=== PATIENT | male | born 1930 | race Caucasian/White ===

== ENCOUNTER 2018-01-31 21:11 | Inpatient (IN) | payer MEDICARE, OTHER, MEDICAID ==
[2018-01-31] MEDS: SODIUM CHLORIDE 0.9% 1L BAG IV* (22:12)
[2018-01-31] MEDS: morphine 4 MG/ML VIAL IV (22:12)
[2018-01-31 22:28] LABS: ADD MAN DIFF? NO
[2018-01-31 22:32] LABS: WHITE BLOOD COUNT 13.7 10^3/ul (4.8-10.8)
[2018-01-31 22:32] LABS: BASOPHILS % 0.2 % (0.0-2.0); HEMATOCRIT 47.7 % (42.0-52.0); HEMOGLOBIN 15.3 g/dl (14.0-18.0); LYMPHOCYTES # 2.4 10^3/ul (0.8-2.9); LYMPHOCYTES % 17.7 % (15.0-51.0); MEAN CORPUSCULAR HEMOGLOBIN 28.7 pg (29.0-33.0); MEAN CORPUSCULAR HGB CONC 32.1 g/dl (32.0-37.0); MEAN CORPUSCULAR VOLUME 89.5 fl (82.0-101.0); MEAN PLATELET VOLUME 10.6 fl (7.4-10.4); MONOCYTE # 1.3 10^3/ul (0.3-0.9); MONOCYTES % 9.4 % (0.0-11.0); NEUTROPHIL # 9.9 10^3/ul (1.6-7.5); NEUTROPHILS % 72.2 % (39.0-77.0); PLATELET COUNT 190 10^3/UL (140-415); POSITIVE DIFF @See below; RED BLOOD COUNT 5.33 10^6/ul (4.70-6.10); RED CELL DISTRIBUTION WIDTH 15.8 % (11.5-14.5)
[2018-01-31] MEDS: ONDANSETRON 4 MG INJ IV (22:44)
[2018-01-31 22:50] LABS: ALANINE AMINOTRANSFERASE 29 IU/L (13-69); ALBUMIN 3.9 g/dl (3.3-4.9); ALBUMIN/GLOBULIN RATIO 1.08; ALKALINE PHOSPHATASE 66 IU/L (42-121); ANION GAP 23 (8-16); ASPARTATE AMINO TRANSFERASE 43 IU/L (15-46); BILIRUBIN,INDIRECT 0.2 mg/dl (0-1.1); BILIRUBIN,TOTAL 0.2 mg/dl (0.2-1.3); BLOOD UREA NITROGEN 73 mg/dl (7-20); CALCIUM 9.4 mg/dl (8.4-10.2); CARBON DIOXIDE 16 mmol/L (21-31); CHLORIDE 114 mmol/L (97-110); CREATININE 4.07 mg/dl (0.61-1.24); GLUCOSE 157 mg/dl (70-220); INR 1.12; PROTIME 14.6 Sec (11.9-14.9); PT RATIO 1.1; SODIUM 146 mmol/L (135-144); TOTAL PROTEIN 7.5 g/dl (6.1-8.1)
[2018-01-31 22:51] LABS: PARTIAL THROMBOPLASTIN TIME 28.1 Sec (25.0-35.0)
[2018-01-31 22:55] LABS: LACTIC ACID 3.8 mmol/L (0.5-2.0)
[2018-01-31 23:16] LABS: BAND NEUTROPHILS #M 3.2 10^3/ul (0.0-0.6); BAND NEUTROPHILS % (M) 24 % (0-4); BURR CELLS 2+ (0-0); GIANT THROMBO% (M) 2 % (0-0); LYMPHOCYTES #M 2.7 10^3/ul (0.8-2.9); LYMPHOCYTES % (M) 20 % (15-51); MONOCYTE #M 0.9 10^3/ul (0.3-0.9); MONOCYTES % (M) 7 % (0-11); PLATELET ESTIMATE NORMAL; POIKILOCYTOSIS 2+ (0-0); SEG NEUT #M 7.2 10^3/ul (1.6-7.5); SEGMENTED NEUTROPHILS (M) % 49 % (39-77); SMUDGE%M 9 % (0-0)
[2018-01-31 23:18] LABS: TROPONIN-I 0.264 ng/ml (0.00-0.12)
[2018-01-31] MEDS: LORAZEPAM 2 MG INJ IV (23:19)
[2018-02-01] MEDS: CEFEPIME 2GM/50 ML (PMX) 50 ML IVPB (00:04)
[2018-02-01 00:07] LABS: ADD UMIC YES; UR ASCORBIC ACID NEGATIVE (NEGATIVE); UR BACTERIA FEW /HPF (NONE SEEN); UR BILIRUBIN (Dip) NEGATIVE (NEGATIVE); UR BLOOD (Dip) NEGATIVE (NEGATIVE); UR CLARITY SLIGHTLY CLOUDY (CLEAR); UR COLOR YELLOW (YELLOW); UR GLUCOSE (Dip) NEGATIVE (NEGATIVE); UR KETONES (Dip) NEGATIVE (NEGATIVE); UR LEUKOCYTE ESTERASE (Dip) NEGATIVE Leu/ul (NEGATIVE); UR MUCUS FEW /HPF (NONE SEEN); UR NITRITE (Dip) NEGATIVE (NEGATIVE); UR RBC 1 /HPF (0-5); UR TOTAL PROTEIN (Dip) 1+ mg/dl (NEGATIVE); UR UROBILINOGEN (Dip) NEGATIVE (NEGATIVE); UR WBC 0 /HPF (0-5)
[2018-02-01] MEDS: CA CHLORIDE 10% 10 ML SYRINGE IV (00:23)
[2018-02-01] MEDS: NA BICARBONATE 8.4% 50 ML SYG IV (00:23)
[2018-02-01] MEDS: VANCOMYCIN 1 GM (PMX) 250 ML IVPB (00:24)
[2018-02-01 00:33] LABS: LACTIC ACID 3.2 mmol/L (0.5-2.0)
[2018-02-01] MEDS: NA POLYST SULFON 15 GM/60 ML BTL PO ×2 (00:37→04:44)
[2018-02-01] MEDS ORDERED: morphine 2 MG INJ IV (01:30)
[2018-02-01] MEDS ORDERED: DEXTROSE 50% 50 ML SYRINGE IV (01:30)
[2018-02-01] MEDS ORDERED: NACL 0.9% 3 ML SYG IV (01:30)
[2018-02-01] MEDS ORDERED: NITROGLYCERIN (SL) 0.4 MG TAB SL (01:30)
[2018-02-01] MEDS: DEXTROSE 50% 50 ML SYRINGE IV (02:21)
[2018-02-01] MEDS: HEPARIN 5,000 UNIT/0.5 ML VIAL SC (02:23)
[2018-02-01] MEDS: INSULIN REGULAR, HUMAN 100 UNIT/1 ML 3ML VIAL IVP (03:10)
[2018-02-01] MEDS: SOD CHLORIDE 0.9% 1,000 ML IV (03:19)
[2018-02-01] MEDS ORDERED: VANCOMYCIN IV PER PHARMACY XX (03:30)
[2018-02-01 03:59] LABS: WHITE BLOOD COUNT 8.1 10^3/ul (4.8-10.8)
[2018-02-01 03:59] LABS: ABNORMAL IP MESSAGE 1; HEMATOCRIT 42.2 % (42.0-52.0); HEMOGLOBIN 13.5 g/dl (14.0-18.0); MEAN CORPUSCULAR HEMOGLOBIN 28.7 pg (29.0-33.0); MEAN CORPUSCULAR VOLUME 89.6 fl (82.0-101.0); MEAN PLATELET VOLUME 10.6 fl (7.4-10.4); PLATELET COUNT 153 10^3/UL (140-415); POSITIVE DIFF @See below; RED BLOOD COUNT 4.71 10^6/ul (4.70-6.10); RED CELL DISTRIBUTION WIDTH 15.4 % (11.5-14.5)
[2018-02-01 04:01] LABS: ADD MAN DIFF? YES
[2018-02-01 04:19] LABS: LACTIC ACID 3.4 mmol/L (0.5-2.0)
[2018-02-01 04:30] LABS: HEMOGLOBIN A1C 5.4 % (0-5.9)
[2018-02-01 04:33] LABS: ANISOCYTOSIS 1+ (0-0); BAND NEUTROPHILS #M 3.2 10^3/ul (0.0-0.6); BAND NEUTROPHILS % (M) 40 % (0-4); EOSINOPHILS % (M) 1 % (0-7); LYMPHOCYTES #M 1.8 10^3/ul (0.8-2.9); LYMPHOCYTES % (M) 23 % (15-51); METAMYELOCYTES #M 0.1 10^3/ul (0.0-0.0); METAMYELOCYTES %M 2 % (0-0); MICROCYTOSIS 1+ (0-0); MONOCYTE #M 0.3 10^3/ul (0.3-0.9); MONOCYTES % (M) 4 % (0-11); PLATELET ESTIMATE NORMAL; POIKILOCYTOSIS 2+ (0-0); SEG NEUT #M 2.7 10^3/ul (1.6-7.5); SEGMENTED NEUTROPHILS (M) % 30 % (39-77); SMUDGE%M 19 % (0-0)
[2018-02-01 04:38] LABS: ALANINE AMINOTRANSFERASE 32 IU/L (13-69); ALBUMIN 2.8 g/dl (3.3-4.9); ALKALINE PHOSPHATASE 54 IU/L (42-121); ANION GAP 19 (8-16); ASPARTATE AMINO TRANSFERASE 36 IU/L (15-46); BILIRUBIN,INDIRECT 0.4 mg/dl (0-1.1); BILIRUBIN,TOTAL 0.4 mg/dl (0.2-1.3); BLOOD UREA NITROGEN 73 mg/dl (7-20); CALCIUM 9.6 mg/dl (8.4-10.2); CARBON DIOXIDE 13 mmol/L (21-31); CHLORIDE 123 mmol/L (97-110); CREATINE KINASE 84 IU/L (23-200); CREATININE 3.42 mg/dl (0.61-1.24); GLUCOSE 182 mg/dl (70-220); MAGNESIUM 1.6 mg/dl (1.7-2.5); POTASSIUM 5.1 mmol/L (3.5-5.1); SODIUM 150 mmol/L (135-144); TOTAL PROTEIN 5.9 g/dl (6.1-8.1)
[2018-02-01] MEDS: SOD CHLORIDE 0.9% 500 ML IV ×3 (04:44→12:13)
[2018-02-01 04:46] LABS: CK INDEX 12.6
[2018-02-01 05:19] LABS: ADD UMIC YES; UR AMORPHOUS CRYSTAL FEW /HPF (NONE SEEN); UR ASCORBIC ACID NEGATIVE (NEGATIVE); UR BILIRUBIN (Dip) NEGATIVE (NEGATIVE); UR BLOOD (Dip) 2+ mg/dL (NEGATIVE); UR CLARITY SLIGHTLY CLOUDY (CLEAR); UR COLOR YELLOW (YELLOW); UR GLUCOSE (Dip) NEGATIVE (NEGATIVE); UR KETONES (Dip) NEGATIVE (NEGATIVE); UR LEUKOCYTE ESTERASE (Dip) NEGATIVE Leu/ul (NEGATIVE); UR NITRITE (Dip) NEGATIVE (NEGATIVE); UR RBC 8 /HPF (0-5); UR SPECIFIC GRAVITY (Dip) 1.016 (1.003-1.030); UR TOTAL PROTEIN (Dip) 1+ mg/dl (NEGATIVE); UR UROBILINOGEN (Dip) NEGATIVE (NEGATIVE); UR WBC 0 /HPF (0-5)
[2018-02-01 05:24] LABS: CREATINE KINASE 89 IU/L (23-200)
[2018-02-01 05:25] LABS: ANION GAP 20 (8-16); BLOOD UREA NITROGEN 74 mg/dl (7-20); CALCIUM 9.2 mg/dl (8.4-10.2); CHLORIDE 125 mmol/L (97-110); CREATININE 3.38 mg/dl (0.61-1.24); GLUCOSE 134 mg/dl (70-220); POTASSIUM 4.8 mmol/L (3.5-5.1); SODIUM 150 mmol/L (135-144)
[2018-02-01 05:33] LABS: TROPONIN-I 0.324 ng/ml (0.00-0.12)
[2018-02-01 05:37] LABS: CARBON DIOXIDE 10 mmol/L (21-31); CK INDEX 11.9
[2018-02-01 05:38] LABS: SODIUM,URINE RANDOM 49 mmol/L (30-90)
[2018-02-01] MEDS: DEXTROSE 5% 1,000 ML IV ×2 (06:08→07:33)
[2018-02-01 06:17] LABS: ADD MAN DIFF? NO
[2018-02-01 06:21] LABS: AADO2 Arterial 125.7 mmHg (7.0-24.0); Allen Test ACCEPTAB; Arterial Base Excess -15.5 mmol/L (-3.0-3); Arterial Blood Gas Oxygen Sat 94.1 mmHG (95.0-100.0); Arterial COHb 0.3 % (0.0-3.0); Arterial Fraction of Oxyhgb 93.4 % (93.0-99.0); Arterial HCO3 10.2 mmol/L (22.0-26.0); Arterial MetHb 0.4 % (0.0-1.5); Arterial Total Hemglobin 13.5 g/dl (12.0-18.0); Arterial pCO2 24.9 mmhg (35-45); MODE NASAL CANNULA; Site Right Radial
[2018-02-01 06:25] LABS: ABNORMAL IP MESSAGE 1; BASOPHILS % 0.3 % (0.0-2.0); HEMATOCRIT 42.9 % (42.0-52.0); HEMOGLOBIN 13.1 g/dl (14.0-18.0); MEAN CORPUSCULAR HGB CONC 30.5 g/dl (32.0-37.0); MEAN CORPUSCULAR VOLUME 94.9 fl (82.0-101.0); MONOCYTE # 0.9 10^3/ul (0.3-0.9); MONOCYTES % 10.4 % (0.0-11.0); NEUTROPHIL # 5.7 10^3/ul (1.6-7.5); PLATELET COUNT 151 10^3/UL (140-415); POSITIVE DIFF @See below; RED BLOOD COUNT 4.52 10^6/ul (4.70-6.10); RED CELL DISTRIBUTION WIDTH 15.9 % (11.5-14.5)
[2018-02-01 06:25] LABS: WHITE BLOOD COUNT 8.6 10^3/ul (4.8-10.8)
[2018-02-01 06:50] LABS: OSMOLALITY 327 mOsm/kg (280-295)
[2018-02-01 06:56] LABS: OSMOLALITY,URINE 498 mOsm/kg (250-1200)
[2018-02-01] MEDS: HEPARIN 1000 UNITS/ML 10 ML INJ IV (07:31)
[2018-02-01] MEDS: HEPARIN 25000 UNITS/250 ML 250 ML IV (07:32)
[2018-02-01] MEDS: MAGNESIUM SULFATE 1 GM/D5W 100 ML IVPB (07:38)
[2018-02-01] MEDS: PIPER-TAZO 2.25 GM (PMX) 50 ML IVPB ×3 (07:39→21:21)
[2018-02-01 09:05] LABS: ANISOCYTOSIS 1+ (0-0); BAND NEUTROPHILS % (M) 35 % (0-4); EOSINOPHILS % (M) 2 % (0-7); LYMPHOCYTES #M 2.4 10^3/ul (0.8-2.9); LYMPHOCYTES % (M) 28 % (15-51); METAMYELOCYTES %M 1 % (0-0); MICROCYTOSIS 1+ (0-0); MONOCYTE #M 0.2 10^3/ul (0.3-0.9); MONOCYTES % (M) 3 % (0-11); MYELOCYTES % (M) 1 % (0-0); PLATELET ESTIMATE NORMAL; POIKILOCYTOSIS 2+ (0-0); SEG NEUT #M 2.8 10^3/ul (1.6-7.5); SEGMENTED NEUTROPHILS (M) % 30 % (39-77); SMUDGE%M 14 % (0-0)
[2018-02-01] MEDS: SODIUM BICARBONATE (IV ADD) 75 MEQ in DEXTROSE 5% 1,000 ML IV (09:43)
[2018-02-01 10:19] LABS: ADD UMIC YES; UR ASCORBIC ACID NEGATIVE (NEGATIVE); UR BILIRUBIN (Dip) NEGATIVE (NEGATIVE); UR BLOOD (Dip) 2+ mg/dL (NEGATIVE); UR CLARITY SLIGHTLY CLOUDY (CLEAR); UR COLOR YELLOW (YELLOW); UR GLUCOSE (Dip) NEGATIVE (NEGATIVE); UR GRANULAR CAST FEW /HPF (NONE SEEN); UR KETONES (Dip) NEGATIVE (NEGATIVE); UR LEUKOCYTE ESTERASE (Dip) NEGATIVE Leu/ul (NEGATIVE); UR MUCUS FEW /HPF (NONE SEEN); UR NITRITE (Dip) NEGATIVE (NEGATIVE); UR RBC 28 /HPF (0-5); UR SPECIFIC GRAVITY (Dip) 1.019 (1.003-1.030); UR TOTAL PROTEIN (Dip) 1+ mg/dl (NEGATIVE); UR UROBILINOGEN (Dip) NEGATIVE (NEGATIVE); UR WBC 2 /HPF (0-5)
[2018-02-01 10:31] LABS: CREATININE,URINE RANDOM 125.73 mg/dl (20-370)
[2018-02-01 10:33] LABS: SODIUM,URINE RANDOM 25 mmol/L (30-90)
[2018-02-01 11:52] LABS: LACTIC ACID 3.1 mmol/L (0.5-2.0)
[2018-02-01] MEDS ORDERED: HEPARIN 1000 UNITS/ML 10 ML INJ IV (12:00)
[2018-02-01 12:15] LABS: ANION GAP 17 (8-16); BLOOD UREA NITROGEN 74 mg/dl (7-20); CALCIUM 8.2 mg/dl (8.4-10.2); CARBON DIOXIDE 12 mmol/L (21-31); CHLORIDE 122 mmol/L (97-110); CREATININE 3.37 mg/dl (0.61-1.24); GLUCOSE 115 mg/dl (70-220); POTASSIUM 4.7 mmol/L (3.5-5.1); SODIUM 146 mmol/L (135-144)
[2018-02-01 13:29] LABS: ANION GAP 19 (8-16); BLOOD UREA NITROGEN 76 mg/dl (7-20); CALCIUM 8.4 mg/dl (8.4-10.2); CARBON DIOXIDE 11 mmol/L (21-31); CHLORIDE 122 mmol/L (97-110); CREATININE 3.51 mg/dl (0.61-1.24); GLUCOSE 96 mg/dl (70-220); POTASSIUM 4.7 mmol/L (3.5-5.1); SODIUM 147 mmol/L (135-144)
[2018-02-01] MEDS ORDERED: NORepinephrine 8MG/250 ML (PMX 250 ML (14:11)
[2018-02-01] MEDS: LIDOCAINE 1% (MPF) 5 ML VIAL SC ×2 (15:00→15:45)
[2018-02-01 15:31] LABS: LACTIC ACID 2.6 mmol/L (0.5-2.0)
[2018-02-01] MEDS: SOD CHLORIDE 0.9% 100 ML (16:05)
[2018-02-01 17:03] LABS: ANION GAP 18 (8-16); BLOOD UREA NITROGEN 78 mg/dl (7-20); CALCIUM 8.2 mg/dl (8.4-10.2); CARBON DIOXIDE 11 mmol/L (21-31); CHLORIDE 122 mmol/L (97-110); CREATININE 3.44 mg/dl (0.61-1.24); GLUCOSE 84 mg/dl (70-220); POTASSIUM 4.7 mmol/L (3.5-5.1); SODIUM 146 mmol/L (135-144)
[2018-02-01] MEDS: NORepinephrine 8MG/250 ML (PMX 250 ML IV (17:41)
[2018-02-01 19:27] LABS: HEMATOCRIT 36.5 % (42.0-52.0); HEMOGLOBIN 11.9 g/dl (14.0-18.0)
[2018-02-01] MEDS: MEROPENEM 1 GM/50ML(PMX) 50 ML IVPB (20:31)
[2018-02-02 04:33] LABS: AADO2 Arterial 583.5 mmHg (7.0-24.0); Arterial Blood Gas Oxygen Sat 97.1 mmHG (95.0-100.0); Arterial COHb 0.3 % (0.0-3.0); Arterial Fraction of Oxyhgb 96.5 % (93.0-99.0); Arterial HCO3 11.4 mmol/L (22.0-26.0); Arterial MetHb 0.3 % (0.0-1.5); Arterial Total Hemglobin 12.2 g/dl (12.0-18.0); MODE MASK - NRB; Site Right Brachial
[2018-02-02] MEDS: PIPER-TAZO 2.25 GM (PMX) 50 ML IVPB ×3 (05:17→22:39)
[2018-02-02] MEDS: NA BICARBONATE 8.4% 50 ML SYG IV (05:17)
[2018-02-02 05:24] LABS: BLOOD UREA NITROGEN 82 mg/dl (7-20)
[2018-02-02 05:24] LABS: CREATININE 3.56 mg/dl (0.61-1.24)
[2018-02-02] MEDS: SODIUM BICARBONATE (IV ADD) 75 MEQ in DEXTROSE 5% 1,000 ML IV (06:36)
[2018-02-02] MEDS: SODIUM BICARBONATE (IV ADD) 150 MEQ in DEXTROSE 5% 1,000 ML IV ×2 (09:43→20:06)
[2018-02-02 11:10] LABS: AADO2 Arterial 605.2 mmHg (7.0-24.0); Allen Test ACCEPTAB; Arterial Base Excess -7.4 mmol/L (-3.0-3); Arterial Blood Gas Oxygen Sat 95.3 mmHG (95.0-100.0); Arterial COHb 0.3 % (0.0-3.0); Arterial Fraction of Oxyhgb 94.7 % (93.0-99.0); Arterial HCO3 16.3 mmol/L (22.0-26.0); Arterial MetHb 0.3 % (0.0-1.5); Arterial Total Hemglobin 11.8 g/dl (12.0-18.0); MODE MASK - NRB; Site Right Radial
[2018-02-02] MEDS: HEPARIN 5,000 UNIT/0.5 ML VIAL SC ×2 (11:16→20:16)
[2018-02-02 12:01] LABS: LIPASE 63 U/L (23-300)
[2018-02-02 12:01] LABS: AMYLASE 152 U/L (11-123)
[2018-02-02 12:03] LABS: ANION GAP 16 (8-16); CARBON DIOXIDE 25 mmol/L (21-31); CHLORIDE 112 mmol/L (97-110); POTASSIUM 3.6 mmol/L (3.5-5.1); SODIUM 149 mmol/L (135-144)
[2018-02-02 13:09] LABS: AMMONIA 11 umol/l (9-30)
[2018-02-02 13:14] LABS: LACTIC ACID 3.9 mmol/L (0.5-2.0)
[2018-02-02 13:57] LABS: MAGNESIUM 1.5 mg/dl (1.7-2.5)
[2018-02-02 15:51] LABS: CREATININE, RANDOM URINE 129 mg/dL (20-370); MICROALBUMIN 6.7 mg/dL; MICROALBUMIN/CREATININE RATIO 52 (<30)
[2018-02-02] MEDS: MAGNESIUM SULFATE 4 GM/100 ML 100 ML IVPB (15:52)
[2018-02-03] MEDS: ACETAMINOPHEN 325 MG TAB PO (04:55)
[2018-02-03] MEDS: PIPER-TAZO 2.25 GM (PMX) 50 ML IVPB ×3 (05:06→21:54)
[2018-02-03] MEDS: PANTOPRAZOLE 40 MG INJ IV (05:07)
[2018-02-03 05:27] LABS: WHITE BLOOD COUNT 5.5 10^3/ul (4.8-10.8)
[2018-02-03 05:28] LABS: ABNORMAL IP MESSAGE 1; HEMATOCRIT 26.9 % (42.0-52.0); HEMOGLOBIN 9.3 g/dl (14.0-18.0); MEAN CORPUSCULAR HEMOGLOBIN 29.1 pg (29.0-33.0); MEAN CORPUSCULAR HGB CONC 34.6 g/dl (32.0-37.0); MEAN CORPUSCULAR VOLUME 84.1 fl (82.0-101.0); MEAN PLATELET VOLUME 11.4 fl (7.4-10.4); PLATELET COUNT 100 10^3/UL (140-415); POSITIVE DIFF @See below; RED CELL DISTRIBUTION WIDTH 14.9 % (11.5-14.5)
[2018-02-03 05:31] LABS: ADD MAN DIFF? YES
[2018-02-03 06:01] LABS: VANCOMYCIN,RANDOM 7.3 ug/ml
[2018-02-03] MEDS: SODIUM BICARBONATE (IV ADD) 150 MEQ in DEXTROSE 5% 1,000 ML IV (06:32)
[2018-02-03 08:00] LABS: AADO2 Arterial 500.9 mmHg (7.0-24.0); Allen Test ACCEPTAB; Arterial Base Excess 3.1 mmol/L (-3.0-3); Arterial Blood Gas Oxygen Sat 97.2 mmHG (95.0-100.0); Arterial COHb 0.2 % (0.0-3.0); Arterial Fraction of Oxyhgb 96.7 % (93.0-99.0); Arterial MetHb 0.3 % (0.0-1.5); Arterial Total Hemglobin 10.8 g/dl (12.0-18.0); Arterial pCO2 33.7 mmhg (35-45); MODE HFNC; Site Right Radial
[2018-02-03] MEDS: DEXTROSE 5%-0.9% NACL 1,000 ML IV (08:17)
[2018-02-03] MEDS: MAGNESIUM SULFATE 2 GM/50 ML 50 ML IVPB (08:18)
[2018-02-03 08:30] LABS: ANION GAP 18 (8-16); BLOOD UREA NITROGEN 88 mg/dl (7-20); CARBON DIOXIDE 26 mmol/L (21-31); CHLORIDE 105 mmol/L (97-110); GLUCOSE 156 mg/dl (70-220); MAGNESIUM 2.7 mg/dl (1.7-2.5); POTASSIUM 3.3 mmol/L (3.5-5.1); SODIUM 146 mmol/L (135-144)
[2018-02-03 08:43] LABS: CALCIUM 5.9 mg/dl (8.4-10.2)
[2018-02-03 08:44] LABS: LACTIC ACID 3.4 mmol/L (0.5-2.0)
[2018-02-03 09:18] LABS: ANISOCYTOSIS 1+ (0-0); BAND NEUTROPHILS #M 1.9 10^3/ul (0.0-0.6); BAND NEUTROPHILS % (M) 35 % (0-4); EOSINOPHILS % (M) 1 % (0-7); ERYTHROBLAST% (NRBC) (M) 1 % (0-0); GIANT THROMBO% (M) 1 % (0-0); LYMPHOCYTES #M 1.5 10^3/ul (0.8-2.9); LYMPHOCYTES % (M) 29 % (15-51); MICROCYTOSIS 1+ (0-0); MONOCYTE #M 0.5 10^3/ul (0.3-0.9); MONOCYTES % (M) 10 % (0-11); PLATELET ESTIMATE DECREASED; POIKILOCYTOSIS 1+ (0-0); POLYCHROMASIA 1+ (0-0); SEG NEUT #M 1.5 10^3/ul (1.6-7.5); SEGMENTED NEUTROPHILS (M) % 25 % (39-77); SMUDGE%M 2 % (0-0); TARGET CELLS 1+ (0-0)
[2018-02-03] MEDS: PNEUMOCOCCAL VACCINE 0.5 ML INJ (DISPENSING) IM* (09:58)
[2018-02-03] MEDS: HEPARIN 5,000 UNIT/0.5 ML VIAL SC ×2 (10:04→21:55)
[2018-02-03] MEDS: POTASSIUM CHLORIDE 20 MEQ POWDER FOR ORAL SOLN NGT (12:31)
[2018-02-03] MEDS ORDERED: FUROSEMIDE 20 MG INJ (12:38)
[2018-02-03] MEDS: FUROSEMIDE 20 MG INJ IV (12:44)
[2018-02-03] MEDS: VANCOMYCIN 1.25 GM in SOD CHLORIDE 0.9% 250 ML IVPB (12:48)
[2018-02-04 05:20] LABS: ADD MAN DIFF? NO
[2018-02-04 05:33] LABS: ABNORMAL IP MESSAGE 1; EOSINOPHILS % 0.7 % (0.0-7.0); HEMATOCRIT 31.2 % (42.0-52.0); HEMOGLOBIN 10.5 g/dl (14.0-18.0); LYMPHOCYTES # 0.8 10^3/ul (0.8-2.9); LYMPHOCYTES % 13.8 % (15.0-51.0); MEAN CORPUSCULAR HEMOGLOBIN 29.4 pg (29.0-33.0); MEAN CORPUSCULAR HGB CONC 33.7 g/dl (32.0-37.0); MEAN CORPUSCULAR VOLUME 87.4 fl (82.0-101.0); MEAN PLATELET VOLUME 11.1 fl (7.4-10.4); MONOCYTE # 0.5 10^3/ul (0.3-0.9); MONOCYTES % 8.9 % (0.0-11.0); NEUTROPHIL # 4.2 10^3/ul (1.6-7.5); NEUTROPHILS % 76.4 % (39.0-77.0); PLATELET COUNT 93 10^3/UL (140-415); POSITIVE DIFF @See below; RED BLOOD COUNT 3.57 10^6/ul (4.70-6.10)
[2018-02-04 05:33] LABS: WHITE BLOOD COUNT 5.5 10^3/ul (4.8-10.8)
[2018-02-04] MEDS: PIPER-TAZO 2.25 GM (PMX) 50 ML IVPB (05:40)
[2018-02-04] MEDS: PANTOPRAZOLE 40 MG INJ IV (05:40)
[2018-02-04 06:16] LABS: ANION GAP 14 (8-16); BLOOD UREA NITROGEN 91 mg/dl (7-20); CALCIUM 6.3 mg/dl (8.4-10.2); CARBON DIOXIDE 30 mmol/L (21-31); CHLORIDE 109 mmol/L (97-110); CREATININE 3.94 mg/dl (0.61-1.24); GLUCOSE 103 mg/dl (70-220); PHOSPHORUS 4.2 mg/dl (2.5-4.9); POTASSIUM 3.2 mmol/L (3.5-5.1); SODIUM 150 mmol/L (135-144)
[2018-02-04] MEDS: DILTIAZEM 25 MG INJ IV (06:37)
[2018-02-04 06:55] LABS: AADO2 Arterial 632.8 mmHg (7.0-24.0); Allen Test ACCEPTAB; Arterial Base Excess 4.9 mmol/L (-3.0-3); Arterial Blood Gas Oxygen Sat 80.8 mmHG (95.0-100.0); Arterial COHb 0.3 % (0.0-3.0); Arterial Fraction of Oxyhgb 80.4 % (93.0-99.0); Arterial HCO3 27.9 mmol/L (22.0-26.0); Arterial MetHb 0.2 % (0.0-1.5); Arterial Total Hemglobin 11.8 g/dl (12.0-18.0); Arterial pCO2 35.4 mmhg (35-45); MODE MASK - NRB; Site Right Radial
[2018-02-04] MEDS: FUROSEMIDE 40 MG INJ IV (08:24)
[2018-02-04] MEDS: HEPARIN 5,000 UNIT/0.5 ML VIAL SC ×2 (08:26→20:40)
[2018-02-04] MEDS: BUMETANIDE 3 MG in DEXTROSE 5% 18 ML IV (10:09)
[2018-02-04] MEDS: POTASSIUM CHLORIDE 20 MEQ POWDER FOR ORAL SOLN NGT (15:22)
[2018-02-04] MEDS ORDERED: MEROPENEM 500MG/50 ML (PMX) 50 ML IVPB (16:00)
[2018-02-04] MEDS: MEROPENEM 500MG/50 ML (PMX) 50 ML IVPB (20:33)
[2018-02-04] MEDS: morphine 2 MG INJ IV (20:33)
[2018-02-04 21:15] LABS: LACTIC ACID 2.5 mmol/L (0.5-2.0)
[2018-02-05 04:50] LABS: ABNORMAL IP MESSAGE 1; HEMATOCRIT 33.5 % (42.0-52.0); HEMOGLOBIN 11.1 g/dl (14.0-18.0); MEAN CORPUSCULAR HEMOGLOBIN 29.3 pg (29.0-33.0); MEAN CORPUSCULAR HGB CONC 33.1 g/dl (32.0-37.0); MEAN CORPUSCULAR VOLUME 88.4 fl (82.0-101.0); MEAN PLATELET VOLUME 10.5 fl (7.4-10.4); PLATELET COUNT 92 10^3/UL (140-415); POSITIVE DIFF @See below; RED BLOOD COUNT 3.79 10^6/ul (4.70-6.10); RED CELL DISTRIBUTION WIDTH 14.9 % (11.5-14.5)
[2018-02-05 04:50] LABS: WHITE BLOOD COUNT 8.4 10^3/ul (4.8-10.8)
[2018-02-05 05:12] LABS: ALANINE AMINOTRANSFERASE 53 IU/L (13-69); ALBUMIN 2.8 g/dl (3.3-4.9); ALBUMIN/GLOBULIN RATIO 0.93; ALKALINE PHOSPHATASE 89 IU/L (42-121); ANION GAP 19 (8-16); ASPARTATE AMINO TRANSFERASE 51 IU/L (15-46); BILIRUBIN,INDIRECT 0.3 mg/dl (0-1.1); BILIRUBIN,TOTAL 0.3 mg/dl (0.2-1.3); BLOOD UREA NITROGEN 100 mg/dl (7-20); CALCIUM 6.3 mg/dl (8.4-10.2); CARBON DIOXIDE 35 mmol/L (21-31); CHLORIDE 105 mmol/L (97-110); CREATININE 4.03 mg/dl (0.61-1.24); GLUCOSE 108 mg/dl (70-220); POTASSIUM 3.3 mmol/L (3.5-5.1); SODIUM 156 mmol/L (135-144); TOTAL PROTEIN 5.8 g/dl (6.1-8.1)
[2018-02-05 05:14] LABS: MAGNESIUM 2.7 mg/dl (1.7-2.5)
[2018-02-05 05:14] LABS: PHOSPHORUS 4.6 mg/dl (2.5-4.9)
[2018-02-05 05:26] LABS: ADD MAN DIFF? YES
[2018-02-05] MEDS: PANTOPRAZOLE 40 MG INJ IV (06:28)
[2018-02-05] MEDS: POTASSIUM CHLORIDE 50 ML IVPB ×3 (06:51→10:51)
[2018-02-05] MEDS: MEROPENEM 500MG/50 ML (PMX) 50 ML IVPB ×2 (09:32→20:52)
[2018-02-05] MEDS: DEXTROSE 5% 1,000 ML IV ×3 (09:34→15:10)
[2018-02-05] MEDS: HEPARIN 5,000 UNIT/0.5 ML VIAL SC ×2 (09:36→20:55)
[2018-02-05 12:16] LABS: ANISOCYTOSIS 1+ (0-0); BAND NEUTROPHILS #M 0.4 10^3/ul (0.0-0.6); BAND NEUTROPHILS % (M) 5 % (0-4); EOSINOPHILS % (M) 1 % (0-7); LYMPHOCYTES #M 1.5 10^3/ul (0.8-2.9); LYMPHOCYTES % (M) 19 % (15-51); MONOCYTE #M 0.6 10^3/ul (0.3-0.9); MONOCYTES % (M) 8 % (0-11); OVALOCYTES 1+ (0-0); PLATELET ESTIMATE DECREASED; POIKILOCYTOSIS 1+ (0-0); POLYCHROMASIA 1+ (0-0); SEG NEUT #M 5.7 10^3/ul (1.6-7.5); SEGMENTED NEUTROPHILS (M) % 67 % (39-77)
[2018-02-05 15:40] LABS: ANION GAP 17 (8-16); BLOOD UREA NITROGEN 107 mg/dl (7-20); CALCIUM 6.4 mg/dl (8.4-10.2); CARBON DIOXIDE 36 mmol/L (21-31); CHLORIDE 108 mmol/L (97-110); CREATININE 3.91 mg/dl (0.61-1.24); GLUCOSE 113 mg/dl (70-220); POTASSIUM 4.1 mmol/L (3.5-5.1); SODIUM 157 mmol/L (135-144)
[2018-02-06 05:42] LABS: ADD MAN DIFF? NO
[2018-02-06 05:53] LABS: WHITE BLOOD COUNT 9.1 10^3/ul (4.8-10.8)
[2018-02-06 05:53] LABS: ABNORMAL IP MESSAGE 1; BASOPHILS % 0.4 % (0.0-2.0); EOSINOPHILS # 0.2 10^3/ul (0.0-0.5); EOSINOPHILS % 1.6 % (0.0-7.0); HEMATOCRIT 33.9 % (42.0-52.0); LYMPHOCYTES # 1.9 10^3/ul (0.8-2.9); LYMPHOCYTES % 21.1 % (15.0-51.0); MEAN CORPUSCULAR HEMOGLOBIN 28.6 pg (29.0-33.0); MEAN CORPUSCULAR HGB CONC 32.4 g/dl (32.0-37.0); MEAN CORPUSCULAR VOLUME 88.3 fl (82.0-101.0); MEAN PLATELET VOLUME 10.9 fl (7.4-10.4); MONOCYTE # 0.8 10^3/ul (0.3-0.9); MONOCYTES % 9.1 % (0.0-11.0); NEUTROPHIL # 6.1 10^3/ul (1.6-7.5); NUCLEATED RED BLOOD CELLS% 0.2 /100WBC (0.0-0.0); PLATELET COUNT 95 10^3/UL (140-415); POSITIVE DIFF @See below; RED BLOOD COUNT 3.84 10^6/ul (4.70-6.10); RED CELL DISTRIBUTION WIDTH 14.9 % (11.5-14.5)
[2018-02-06] MEDS: DEXTROSE 5% 1,000 ML IV ×3 (05:53→18:21)
[2018-02-06] MEDS: PANTOPRAZOLE 40 MG INJ IV (05:53)
[2018-02-06 06:23] LABS: MAGNESIUM 2.4 mg/dl (1.7-2.5)
[2018-02-06 06:23] LABS: PHOSPHORUS 2.5 mg/dl (2.5-4.9)
[2018-02-06 06:25] LABS: ALANINE AMINOTRANSFERASE 38 IU/L (13-69); ALBUMIN 2.6 g/dl (3.3-4.9); ALBUMIN/GLOBULIN RATIO 0.89; ALKALINE PHOSPHATASE 105 IU/L (42-121); ANION GAP 14 (8-16); ASPARTATE AMINO TRANSFERASE 36 IU/L (15-46); BILIRUBIN,INDIRECT 0.2 mg/dl (0-1.1); BILIRUBIN,TOTAL 0.2 mg/dl (0.2-1.3); BLOOD UREA NITROGEN 99 mg/dl (7-20); CALCIUM 6.2 mg/dl (8.4-10.2); CARBON DIOXIDE 35 mmol/L (21-31); CHLORIDE 104 mmol/L (97-110); CREATININE 3.39 mg/dl (0.61-1.24); GLUCOSE 144 mg/dl (70-220); POTASSIUM 3.5 mmol/L (3.5-5.1); SODIUM 149 mmol/L (135-144); TOTAL PROTEIN 5.5 g/dl (6.1-8.1)
[2018-02-06] MEDS: MEROPENEM 500MG/50 ML (PMX) 50 ML IVPB ×2 (08:22→21:17)
[2018-02-06] MEDS: morphine 2 MG INJ IV ×2 (08:37→18:45)
[2018-02-06] MEDS: HEPARIN 5,000 UNIT/0.5 ML VIAL SC ×2 (08:57→21:20)
[2018-02-06 09:26] LABS: ANISOCYTOSIS 2+ (0-0); BAND NEUTROPHILS #M 0.8 10^3/ul (0.0-0.6); BAND NEUTROPHILS % (M) 9 % (0-4); EOSINOPHILS % (M) 3 % (0-7); ERYTHROBLAST% (NRBC) (M) 1 % (0-0); LYMPHOCYTES #M 1.5 10^3/ul (0.8-2.9); LYMPHOCYTES % (M) 17 % (15-51); MICROCYTOSIS 1+ (0-0); MONOCYTES % (M) 12 % (0-11); PLATELET ESTIMATE SIG DECREASED; POIKILOCYTOSIS 1+ (0-0); POLYCHROMASIA 3+ (0-0); REACTIVE LYMPHOCYTES #M 0.3 10^3/ul (0.0-0.0); REACTIVE LYMPHOCYTES% (M) 4 % (0-0); SEG NEUT #M 5.1 10^3/ul (1.6-7.5); SEGMENTED NEUTROPHILS (M) % 55 % (39-77); SMUDGE%M 6 % (0-0)
[2018-02-06] MEDS: ACETYLCYSTEINE 20% 4 ML VIAL NEB ×3 (10:01→20:07)
[2018-02-06] MEDS: ALBUTEROL/IPRATROPIUM (NEB) 3 ML AMP HHN ×3 (10:01→20:07)
[2018-02-06] MEDS: VANCOMYCIN 750 MG in DEXTROSE 5% 150 ML IVPB (15:09)
[2018-02-07] MEDS: BALSAM PERU/CASTOR OIL 60 GM TUBE TOP ×3 (01:32→21:37)
[2018-02-07] MEDS: ACETYLCYSTEINE 20% 4 ML VIAL NEB ×4 (02:04→20:05)
[2018-02-07] MEDS: ALBUTEROL/IPRATROPIUM (NEB) 3 ML AMP HHN ×4 (02:04→20:05)
[2018-02-07 05:22] LABS: ABNORMAL IP MESSAGE 1; HEMATOCRIT 31.7 % (42.0-52.0); HEMOGLOBIN 10.2 g/dl (14.0-18.0); MEAN CORPUSCULAR HEMOGLOBIN 28.8 pg (29.0-33.0); MEAN CORPUSCULAR HGB CONC 32.2 g/dl (32.0-37.0); MEAN CORPUSCULAR VOLUME 89.5 fl (82.0-101.0); MEAN PLATELET VOLUME 10.8 fl (7.4-10.4); PLATELET COUNT 74 10^3/UL (140-415); POSITIVE DIFF @See below; RED BLOOD COUNT 3.54 10^6/ul (4.70-6.10)
[2018-02-07 05:22] LABS: WHITE BLOOD COUNT 8.8 10^3/ul (4.8-10.8)
[2018-02-07 05:25] LABS: ADD MAN DIFF? YES
[2018-02-07 05:53] LABS: ANION GAP 15 (8-16); BLOOD UREA NITROGEN 87 mg/dl (7-20); CARBON DIOXIDE 33 mmol/L (21-31); CHLORIDE 98 mmol/L (97-110); CREATININE 2.86 mg/dl (0.61-1.24); GLUCOSE 135 mg/dl (70-220); MAGNESIUM 2.1 mg/dl (1.7-2.5); PHOSPHORUS 2.9 mg/dl (2.5-4.9); POTASSIUM 3.1 mmol/L (3.5-5.1); SODIUM 143 mmol/L (135-144)
[2018-02-07] MEDS: PANTOPRAZOLE 40 MG INJ IV (05:54)
[2018-02-07 05:55] LABS: CALCIUM 5.6 mg/dl (8.4-10.2)
[2018-02-07 07:38] LABS: AADO2 Arterial 249.4 mmHg (7.0-24.0); Allen Test ACCEPTAB; Arterial Base Excess 4.8 mmol/L (-3.0-3); Arterial Blood Gas Oxygen Sat 93.9 mmHG (95.0-100.0); Arterial COHb 0.3 % (0.0-3.0); Arterial Fraction of Oxyhgb 93.4 % (93.0-99.0); Arterial HCO3 27.1 mmol/L (22.0-26.0); Arterial MetHb 0.2 % (0.0-1.5); Arterial Total Hemglobin 10.4 g/dl (12.0-18.0); Arterial pCO2 31.8 mmhg (35-45); MODE HFNC; Site Right Radial
[2018-02-07 07:39] LABS: BAND NEUTROPHILS #M 1.4 10^3/ul (0.0-0.6); BAND NEUTROPHILS % (M) 17 % (0-4); EOSINOPHILS % (M) 3 % (0-7); HYPOCHROMASIA 2+ (0-0); LYMPHOCYTES #M 2.4 10^3/ul (0.8-2.9); LYMPHOCYTES % (M) 28 % (15-51); MONOCYTE #M 0.8 10^3/ul (0.3-0.9); MONOCYTES % (M) 10 % (0-11); PLATELET ESTIMATE DECREASED; POLYCHROMASIA 1+ (0-0); REACTIVE LYMPHOCYTES #M 0.1 10^3/ul (0.0-0.0); REACTIVE LYMPHOCYTES% (M) 2 % (0-0); SEG NEUT #M 3.6 10^3/ul (1.6-7.5); SEGMENTED NEUTROPHILS (M) % 40 % (39-77); SMUDGE%M 10 % (0-0)
[2018-02-07] MEDS: DEXTROSE 5% 1,000 ML IV (07:57)
[2018-02-07] MEDS: CALCIUM GLUCONATE 10% 2 GM in DEXTROSE 5% 100 ML IVPB (08:02)
[2018-02-07] MEDS: POTASSIUM CHLORIDE 20 MEQ POWDER FOR ORAL SOLN NGT (08:04)
[2018-02-07] MEDS: ACETAMINOPHEN 325 MG TAB PO (08:04)
[2018-02-07] MEDS: HEPARIN 5,000 UNIT/0.5 ML VIAL SC ×2 (08:05→21:36)
[2018-02-07] MEDS: MEROPENEM 500MG/50 ML (PMX) 50 ML IVPB ×2 (08:21→21:34)
[2018-02-07] MEDS: morphine 2 MG INJ IV ×3 (08:22→18:58)
[2018-02-07] MEDS: FUROSEMIDE 40 MG INJ IV (09:18)
[2018-02-07] MEDS: AMIODARONE 200 MG TAB NGT ×2 (13:37→21:35)
[2018-02-08] MEDS: ACETYLCYSTEINE 20% 4 ML VIAL NEB ×4 (01:51→20:47)
[2018-02-08] MEDS: ALBUTEROL/IPRATROPIUM (NEB) 3 ML AMP HHN ×4 (01:51→20:47)
[2018-02-08] MEDS: PANTOPRAZOLE 40 MG INJ IV (04:53)
[2018-02-08 05:35] LABS: WHITE BLOOD COUNT 10.2 10^3/ul (4.8-10.8)
[2018-02-08 05:35] LABS: ABNORMAL IP MESSAGE 1; ANION GAP 16 (8-16); BLOOD UREA NITROGEN 85 mg/dl (7-20); CARBON DIOXIDE 32 mmol/L (21-31); CHLORIDE 98 mmol/L (97-110); CREATININE 2.56 mg/dl (0.61-1.24); GLUCOSE 95 mg/dl (70-220); HEMATOCRIT 32.6 % (42.0-52.0); HEMOGLOBIN 10.4 g/dl (14.0-18.0); MAGNESIUM 1.9 mg/dl (1.7-2.5); MEAN CORPUSCULAR HEMOGLOBIN 28.7 pg (29.0-33.0); MEAN CORPUSCULAR HGB CONC 31.9 g/dl (32.0-37.0); MEAN CORPUSCULAR VOLUME 89.8 fl (82.0-101.0); MEAN PLATELET VOLUME 12.2 fl (7.4-10.4); PHOSPHORUS 4.2 mg/dl (2.5-4.9); PLATELET COUNT 89 10^3/UL (140-415); POSITIVE DIFF @See below; POTASSIUM 3.6 mmol/L (3.5-5.1); RED BLOOD COUNT 3.63 10^6/ul (4.70-6.10); RED CELL DISTRIBUTION WIDTH 15.1 % (11.5-14.5); SODIUM 142 mmol/L (135-144)
[2018-02-08 05:39] LABS: LACTIC ACID 2.2 mmol/L (0.5-2.0)
[2018-02-08 05:41] LABS: ADD MAN DIFF? YES
[2018-02-08 08:54] LABS: ANISOCYTOSIS 1+ (0-0); BAND NEUTROPHILS #M 1.5 10^3/ul (0.0-0.6); BAND NEUTROPHILS % (M) 15 % (0-4); ERYTHROBLAST% (NRBC) (M) 1 % (0-0); GIANT THROMBO% (M) 3 % (0-0); HYPOCHROMASIA 1+ (0-0); LYMPHOCYTES #M 2.4 10^3/ul (0.8-2.9); LYMPHOCYTES % (M) 24 % (15-51); MICROCYTOSIS 1+ (0-0); MONOCYTES % (M) 10 % (0-11); PLATELET ESTIMATE DECREASED; POLYCHROMASIA 2+ (0-0); SEG NEUT #M 5.4 10^3/ul (1.6-7.5); SEGMENTED NEUTROPHILS (M) % 51 % (39-77); SMUDGE%M 11 % (0-0)
[2018-02-08] MEDS: AMIODARONE 200 MG TAB NGT ×2 (09:26→20:29)
[2018-02-08] MEDS: BALSAM PERU/CASTOR OIL 60 GM TUBE TOP ×2 (09:26→20:29)
[2018-02-08] MEDS: MEROPENEM 500MG/50 ML (PMX) 50 ML IVPB ×2 (09:26→20:29)
[2018-02-08] MEDS: HEPARIN 5,000 UNIT/0.5 ML VIAL SC ×2 (09:59→20:35)
[2018-02-08] MEDS: VANCOMYCIN 750 MG in DEXTROSE 5% 150 ML IVPB (16:51)
[2018-02-08] MEDS: morphine 2 MG INJ IV (20:30)
[2018-02-09] MEDS: ACETYLCYSTEINE 20% 4 ML VIAL NEB ×4 (02:20→21:02)
[2018-02-09] MEDS: ALBUTEROL/IPRATROPIUM (NEB) 3 ML AMP HHN ×4 (03:16→20:50)
[2018-02-09] MEDS: PANTOPRAZOLE 40 MG INJ IV (05:48)
[2018-02-09 06:28] LABS: WHITE BLOOD COUNT 9.4 10^3/ul (4.8-10.8)
[2018-02-09 06:28] LABS: ABNORMAL IP MESSAGE 1; HEMATOCRIT 29.9 % (42.0-52.0); HEMOGLOBIN 9.5 g/dl (14.0-18.0); MEAN CORPUSCULAR HEMOGLOBIN 28.6 pg (29.0-33.0); MEAN CORPUSCULAR HGB CONC 31.8 g/dl (32.0-37.0); MEAN CORPUSCULAR VOLUME 90.1 fl (82.0-101.0); MEAN PLATELET VOLUME 12.2 fl (7.4-10.4); PLATELET COUNT 115 10^3/UL (140-415); POSITIVE DIFF @See below; RED BLOOD COUNT 3.32 10^6/ul (4.70-6.10); RED CELL DISTRIBUTION WIDTH 15.5 % (11.5-14.5)
[2018-02-09 06:30] LABS: ADD MAN DIFF? YES
[2018-02-09 06:57] LABS: ANION GAP 17 (8-16); BLOOD UREA NITROGEN 80 mg/dl (7-20); CALCIUM 6.1 mg/dl (8.4-10.2); CARBON DIOXIDE 30 mmol/L (21-31); CHLORIDE 104 mmol/L (97-110); CREATININE 2.78 mg/dl (0.61-1.24); GLUCOSE 96 mg/dl (70-220); MAGNESIUM 2.1 mg/dl (1.7-2.5); PHOSPHORUS 4.4 mg/dl (2.5-4.9); POTASSIUM 3.3 mmol/L (3.5-5.1); SODIUM 148 mmol/L (135-144)
[2018-02-09 07:45] LABS: BAND NEUTROPHILS #M 0.9 10^3/ul (0.0-0.6); BAND NEUTROPHILS % (M) 10 % (0-4); EOSINOPHILS % (M) 4 % (0-7); ERYTHROBLAST% (NRBC) (M) 2 % (0-0); GIANT THROMBO% (M) 3 % (0-0); HYPOCHROMASIA 2+ (0-0); LYMPHOCYTES #M 1.2 10^3/ul (0.8-2.9); LYMPHOCYTES % (M) 13 % (15-51); METAMYELOCYTES #M 0.1 10^3/ul (0.0-0.0); METAMYELOCYTES %M 2 % (0-0); MONOCYTES % (M) 11 % (0-11); PLATELET ESTIMATE DECREASED; POLYCHROMASIA 2+ (0-0); SEG NEUT #M 5.7 10^3/ul (1.6-7.5); SEGMENTED NEUTROPHILS (M) % 60 % (39-77); SMUDGE%M 21 % (0-0); TARGET CELLS 1+ (0-0)
[2018-02-09] MEDS: POTASSIUM CHLORIDE 100 ML IVPB (08:47)
[2018-02-09] MEDS: DEXTROSE 5% 1,000 ML IV (08:47)
[2018-02-09] MEDS: BALSAM PERU/CASTOR OIL 60 GM TUBE TOP ×2 (10:48→21:05)
[2018-02-09] MEDS: AMIODARONE 200 MG TAB NGT ×2 (10:48→21:04)
[2018-02-09] MEDS: HEPARIN 5,000 UNIT/0.5 ML VIAL SC ×2 (10:55→21:21)
[2018-02-09] MEDS: MEROPENEM 500MG/50 ML (PMX) 50 ML IVPB ×2 (11:03→21:04)
[2018-02-09 11:13] LABS: LACTIC ACID 1.7 mmol/L (0.5-2.0)
[2018-02-09] MEDS: ALTEPLASE (CATHFLO) 2 MG INJ CATHETER (18:45)
[2018-02-10] MEDS: ALBUTEROL/IPRATROPIUM (NEB) 3 ML AMP HHN ×4 (02:54→20:00)
[2018-02-10] MEDS: ACETYLCYSTEINE 20% 4 ML VIAL NEB ×4 (03:02→20:00)
[2018-02-10] MEDS: PANTOPRAZOLE 40 MG INJ IV (05:10)
[2018-02-10 08:24] LABS: WHITE BLOOD COUNT 8.4 10^3/ul (4.8-10.8)
[2018-02-10 08:24] LABS: ABNORMAL IP MESSAGE 1; HEMATOCRIT 31.3 % (42.0-52.0); HEMOGLOBIN 9.9 g/dl (14.0-18.0); MEAN CORPUSCULAR HEMOGLOBIN 28.6 pg (29.0-33.0); MEAN CORPUSCULAR HGB CONC 31.6 g/dl (32.0-37.0); MEAN CORPUSCULAR VOLUME 90.5 fl (82.0-101.0); MEAN PLATELET VOLUME 11.9 fl (7.4-10.4); NUCLEATED RED BLOOD CELLS% 0.2 /100WBC (0.0-0.0); PLATELET COUNT 151 10^3/UL (140-415); POSITIVE DIFF @See below; RED BLOOD COUNT 3.46 10^6/ul (4.70-6.10); RED CELL DISTRIBUTION WIDTH 15.6 % (11.5-14.5)
[2018-02-10 08:26] LABS: ADD MAN DIFF? YES
[2018-02-10 08:45] LABS: ANION GAP 13 (8-16); BLOOD UREA NITROGEN 62 mg/dl (7-20); CARBON DIOXIDE 31 mmol/L (21-31); CHLORIDE 108 mmol/L (97-110); CREATININE 2.25 mg/dl (0.61-1.24); GLUCOSE 116 mg/dl (70-220); MAGNESIUM 2.2 mg/dl (1.7-2.5); PHOSPHORUS 3.5 mg/dl (2.5-4.9); POTASSIUM 3.4 mmol/L (3.5-5.1); SODIUM 149 mmol/L (135-144)
[2018-02-10] MEDS: MEROPENEM 500MG/50 ML (PMX) 50 ML IVPB ×2 (09:49→21:33)
[2018-02-10] MEDS: AMIODARONE 200 MG TAB NGT ×2 (09:50→21:38)
[2018-02-10] MEDS: HEPARIN 5,000 UNIT/0.5 ML VIAL SC ×2 (09:57→21:49)
[2018-02-10 10:51] LABS: ANISOCYTOSIS 1+ (0-0); BAND NEUTROPHILS % (M) 1 % (0-4); BASOPHILS % (M) 1 % (0-2); HYPOCHROMASIA 1+ (0-0); LYMPHOCYTES #M 1.7 10^3/ul (0.8-2.9); LYMPHOCYTES % (M) 21 % (15-51); MICROCYTOSIS 1+ (0-0); MONOCYTE #M 0.4 10^3/ul (0.3-0.9); MONOCYTES % (M) 5 % (0-11); PLATELET ESTIMATE NORMAL; POLYCHROMASIA 3+ (0-0); REACTIVE LYMPHOCYTES #M 0.4 10^3/ul (0.0-0.0); REACTIVE LYMPHOCYTES% (M) 5 % (0-0); SEG NEUT #M 5.6 10^3/ul (1.6-7.5); SEGMENTED NEUTROPHILS (M) % 67 % (39-77); SMUDGE%M 4 % (0-0)
[2018-02-10] MEDS: BALSAM PERU/CASTOR OIL 60 GM TUBE TOP ×2 (10:54→21:38)
[2018-02-10] MEDS: POTASSIUM CHLORIDE 100 ML IVPB ×2 (10:55→13:51)
[2018-02-10] MEDS: ACETAMINOPHEN 325 MG TAB PO (14:34)
[2018-02-10 14:52] LABS: VANCOMYCIN,TROUGH 9.5 ug/ml (10.0-20.0)
[2018-02-10] MEDS: VANCOMYCIN 750 MG in DEXTROSE 5% 150 ML IVPB (16:10)
[2018-02-10] MEDS: VANCOMYCIN 500MG/NS (PMX) 100 ML IVPB (18:11)
[2018-02-11] MEDS: ACETAMINOPHEN 325 MG TAB PO (01:58)
[2018-02-11] MEDS: ALBUTEROL/IPRATROPIUM (NEB) 3 ML AMP HHN ×4 (02:04→20:17)
[2018-02-11] MEDS: ACETYLCYSTEINE 20% 4 ML VIAL NEB ×4 (02:04→20:17)
[2018-02-11] MEDS: PANTOPRAZOLE 40 MG INJ IV (05:09)
[2018-02-11] MEDS: morphine 2 MG INJ IV (06:38)
[2018-02-11 06:54] LABS: ADD MAN DIFF? NO
[2018-02-11 07:05] LABS: BASOPHIL # 0.1 10^3/ul (0.0-0.1); BASOPHILS % 0.8 % (0.0-2.0); EOSINOPHILS # 0.2 10^3/ul (0.0-0.5); EOSINOPHILS % 3.2 % (0.0-7.0); HEMATOCRIT 29.7 % (42.0-52.0); HEMOGLOBIN 9.3 g/dl (14.0-18.0); LYMPHOCYTES % 24.1 % (15.0-51.0); MEAN CORPUSCULAR HEMOGLOBIN 28.7 pg (29.0-33.0); MEAN CORPUSCULAR HGB CONC 31.3 g/dl (32.0-37.0); MEAN CORPUSCULAR VOLUME 91.7 fl (82.0-101.0); MEAN PLATELET VOLUME 11.6 fl (7.4-10.4); MONOCYTE # 0.9 10^3/ul (0.3-0.9); MONOCYTES % 11.6 % (0.0-11.0); NEUTROPHIL # 4.2 10^3/ul (1.6-7.5); NEUTROPHILS % 56.9 % (39.0-77.0); PLATELET COUNT 170 10^3/UL (140-415); POSITIVE DIFF @See below; RED BLOOD COUNT 3.24 10^6/ul (4.70-6.10); RED CELL DISTRIBUTION WIDTH 15.2 % (11.5-14.5)
[2018-02-11 07:05] LABS: WHITE BLOOD COUNT 7.4 10^3/ul (4.8-10.8)
[2018-02-11 07:43] LABS: ANION GAP 14 (8-16); BLOOD UREA NITROGEN 47 mg/dl (7-20); CALCIUM 7.1 mg/dl (8.4-10.2); CARBON DIOXIDE 28 mmol/L (21-31); CHLORIDE 112 mmol/L (97-110); CREATININE 1.83 mg/dl (0.61-1.24); GLUCOSE 88 mg/dl (70-220); MAGNESIUM 2.1 mg/dl (1.7-2.5); PHOSPHORUS 3.9 mg/dl (2.5-4.9); POTASSIUM 3.8 mmol/L (3.5-5.1); SODIUM 150 mmol/L (135-144)
[2018-02-11] MEDS: DEXTROSE 5% 1,000 ML IV ×2 (08:22→19:41)
[2018-02-11] MEDS: HEPARIN 5,000 UNIT/0.5 ML VIAL SC ×2 (08:26→21:04)
[2018-02-11] MEDS: MEROPENEM 500MG/50 ML (PMX) 50 ML IVPB (08:29)
[2018-02-11] MEDS: BALSAM PERU/CASTOR OIL 60 GM TUBE TOP ×2 (08:41→21:04)
[2018-02-11] MEDS: AMIODARONE 200 MG TAB NGT ×2 (08:41→20:49)
[2018-02-11 12:23] LABS: BAND NEUTROPHILS #M 0.5 10^3/ul (0.0-0.6); BAND NEUTROPHILS % (M) 8 % (0-4); EOSINOPHILS % (M) 3 % (0.0-7.0); LYMPHOCYTES # 1.5 10^3/ul (0.8-2.9); LYMPHOCYTES #M 1.4 10^3/ul (0.8-2.9); LYMPHOCYTES % (M) 20 % (15-51); MONOCYTE #M 0.8 10^3/ul (0.3-0.9); MONOCYTES % (M) 12 % (0-11); SEG NEUT #M 4.2 10^3/ul (1.7-7.5); SEGMENTED NEUTROPHILS (M) % 56 % (39-77)
[2018-02-11] MEDS ORDERED: VANCOMYCIN IV PER PHARMACY XX (19:00)
[2018-02-12] MEDS: ALBUTEROL/IPRATROPIUM (NEB) 3 ML AMP HHN ×4 (01:11→20:13)
[2018-02-12] MEDS: ACETYLCYSTEINE 20% 4 ML VIAL NEB ×4 (01:11→20:13)
[2018-02-12] MEDS: DEXTROSE 5% 1,000 ML IV ×3 (03:30→23:53)
[2018-02-12] MEDS: PANTOPRAZOLE 40 MG INJ IV (05:30)
[2018-02-12] MEDS: VANCOMYCIN 1.25 GM in SOD CHLORIDE 0.9% 250 ML IVPB (05:31)
[2018-02-12] MEDS ORDERED: VANCOMYCIN 1.25 GM in SOD CHLORIDE 0.9% 250 ML IVPB ×2 (06:00→16:00)
[2018-02-12 06:32] LABS: WHITE BLOOD COUNT 9.1 10^3/ul (4.8-10.8)
[2018-02-12 06:32] LABS: ABNORMAL IP MESSAGE 1; HEMATOCRIT 28.5 % (42.0-52.0); MEAN CORPUSCULAR HEMOGLOBIN 29.1 pg (29.0-33.0); MEAN CORPUSCULAR HGB CONC 31.6 g/dl (32.0-37.0); MEAN CORPUSCULAR VOLUME 92.2 fl (82.0-101.0); MEAN PLATELET VOLUME 11.3 fl (7.4-10.4); NUCLEATED RED BLOOD CELLS% 0.2 /100WBC (0.0-0.0); PLATELET COUNT 187 10^3/UL (140-415); POSITIVE DIFF @See below; RED BLOOD COUNT 3.09 10^6/ul (4.70-6.10); RED CELL DISTRIBUTION WIDTH 15.6 % (11.5-14.5)
[2018-02-12 06:54] LABS: LACTIC ACID 1.9 mmol/L (0.5-2.0)
[2018-02-12 06:58] LABS: ADD MAN DIFF? YES
[2018-02-12 07:11] LABS: ANION GAP 10 (8-16)
[2018-02-12 07:14] LABS: BLOOD UREA NITROGEN 35 mg/dl (7-20); CALCIUM 7.1 mg/dl (8.4-10.2); CARBON DIOXIDE 30 mmol/L (21-31); CHLORIDE 108 mmol/L (97-110); GLUCOSE 110 mg/dl (70-220); MAGNESIUM 1.9 mg/dl (1.7-2.5); PHOSPHORUS 2.7 mg/dl (2.5-4.9); POTASSIUM 3.7 mmol/L (3.5-5.1); SODIUM 144 mmol/L (135-144)
[2018-02-12] MEDS: BALSAM PERU/CASTOR OIL 60 GM TUBE TOP ×2 (08:08→21:29)
[2018-02-12] MEDS: AMIODARONE 200 MG TAB NGT ×2 (08:08→21:29)
[2018-02-12] MEDS: HEPARIN 5,000 UNIT/0.5 ML VIAL SC ×2 (08:09→21:33)
[2018-02-12 11:11] LABS: ANISOCYTOSIS 1+ (0-0); BAND NEUTROPHILS #M 0.7 10^3/ul (0.0-0.6); BAND NEUTROPHILS % (M) 8 % (0-4); BASOPHIL #M 0.1 10^3/ul (0.0-0.0); BASOPHILS % (M) 2 % (0-2); EOSINOPHILS % (M) 3 % (0-7); LYMPHOCYTES #M 2.4 10^3/ul (0.8-2.9); LYMPHOCYTES % (M) 27 % (15-51); METAMYELOCYTES %M 1 % (0-0); MONOCYTE #M 1.3 10^3/ul (0.3-0.9); MONOCYTES % (M) 15 % (0-11); PLATELET ESTIMATE NORMAL; POIKILOCYTOSIS 2+ (0-0); REACTIVE LYMPHOCYTES #M 0.1 10^3/ul (0.0-0.0); REACTIVE LYMPHOCYTES% (M) 2 % (0-0); SEG NEUT #M 3.9 10^3/ul (1.6-7.5); SEGMENTED NEUTROPHILS (M) % 42 % (39-77); SMUDGE%M 47 % (0-0)
[2018-02-13] MEDS: ACETYLCYSTEINE 20% 4 ML VIAL NEB ×5 (01:47→20:08)
[2018-02-13] MEDS: ALBUTEROL/IPRATROPIUM (NEB) 3 ML AMP HHN ×5 (01:47→20:08)
[2018-02-13] MEDS: morphine 2 MG INJ IV (03:43)
[2018-02-13] MEDS: PANTOPRAZOLE 40 MG INJ IV (05:42)
[2018-02-13 06:02] LABS: ADD MAN DIFF? NO
[2018-02-13 06:12] LABS: BASOPHIL # 0.1 10^3/ul (0.0-0.1); BASOPHILS % 0.5 % (0.0-2.0); EOSINOPHILS # 0.3 10^3/ul (0.0-0.5); EOSINOPHILS % 2.6 % (0.0-7.0); HEMATOCRIT 27.9 % (42.0-52.0); HEMOGLOBIN 8.7 g/dl (14.0-18.0); LYMPHOCYTES # 2.6 10^3/ul (0.8-2.9); LYMPHOCYTES % 23.9 % (15.0-51.0); MEAN CORPUSCULAR HEMOGLOBIN 28.7 pg (29.0-33.0); MEAN CORPUSCULAR HGB CONC 31.2 g/dl (32.0-37.0); MEAN CORPUSCULAR VOLUME 92.1 fl (82.0-101.0); MEAN PLATELET VOLUME 11.1 fl (7.4-10.4); MONOCYTE # 0.8 10^3/ul (0.3-0.9); MONOCYTES % 7.3 % (0.0-11.0); NEUTROPHIL # 6.7 10^3/ul (1.6-7.5); NEUTROPHILS % 61.2 % (39.0-77.0); NUCLEATED RED BLOOD CELLS% 0.2 /100WBC (0.0-0.0); PLATELET COUNT 187 10^3/UL (140-415); POSITIVE DIFF @See below; RED BLOOD COUNT 3.03 10^6/ul (4.70-6.10); RED CELL DISTRIBUTION WIDTH 15.1 % (11.5-14.5)
[2018-02-13 06:12] LABS: WHITE BLOOD COUNT 10.9 10^3/ul (4.8-10.8)
[2018-02-13 07:50] LABS: ANISOCYTOSIS 1+ (0-0); BAND NEUTROPHILS #M 1.8 10^3/ul (0.0-0.6); BAND NEUTROPHILS % (M) 17 % (0-4); EOSINOPHILS % (M) 2 % (0-7); ERYTHROBLAST% (NRBC) (M) 1 % (0-0); GIANT THROMBO% (M) 1 % (0-0); HYPOCHROMASIA 2+ (0-0); LYMPHOCYTES #M 1.6 10^3/ul (0.8-2.9); LYMPHOCYTES % (M) 15 % (15-51); METAMYELOCYTES #M 0.1 10^3/ul (0.0-0.0); METAMYELOCYTES %M 1 % (0-0); MONOCYTE #M 0.6 10^3/ul (0.3-0.9); MONOCYTES % (M) 6 % (0-11); MYELOCYTES #M 0.3 10^3/ul (0.0-0.0); MYELOCYTES % (M) 3 % (0-0); PLATELET ESTIMATE NORMAL; POIKILOCYTOSIS 1+ (0-0); POLYCHROMASIA 3+ (0-0); REACTIVE LYMPHOCYTES #M 0.1 10^3/ul (0.0-0.0); REACTIVE LYMPHOCYTES% (M) 1 % (0-0); SEG NEUT #M 6.2 10^3/ul (1.6-7.5); SEGMENTED NEUTROPHILS (M) % 55 % (39-77); SMUDGE%M 10 % (0-0)
[2018-02-13 08:03] LABS: ANION GAP 10 (8-16); BLOOD UREA NITROGEN 26 mg/dl (7-20); CARBON DIOXIDE 27 mmol/L (21-31); CHLORIDE 106 mmol/L (97-110); CREATININE 1.74 mg/dl (0.61-1.24); GLUCOSE 96 mg/dl (70-220); MAGNESIUM 1.6 mg/dl (1.7-2.5); PHOSPHORUS 3.3 mg/dl (2.5-4.9); POTASSIUM 3.8 mmol/L (3.5-5.1); SODIUM 139 mmol/L (135-144)
[2018-02-13] MEDS: AMIODARONE 200 MG TAB NGT ×2 (09:30→20:08)
[2018-02-13] MEDS: HEPARIN 5,000 UNIT/0.5 ML VIAL SC ×2 (09:44→20:33)
[2018-02-13] MEDS: BALSAM PERU/CASTOR OIL 60 GM TUBE TOP ×2 (09:45→20:41)
[2018-02-13] MEDS: ACCU-CHEK XX ×2 (12:00→18:33)
[2018-02-13] MEDS: FUROSEMIDE 20 MG INJ IV (15:46)
[2018-02-13] MEDS: MAGNESIUM SULFATE 2 GM/50 ML 50 ML IVPB (15:46)
[2018-02-13] MEDS: FOSFOMYCIN 3 GM PACKET PO (18:43)
[2018-02-13] MEDS: ACETAMINOPHEN 325 MG TAB PO (20:40)
[2018-02-14] MEDS: ALBUTEROL/IPRATROPIUM (NEB) 3 ML AMP HHN ×4 (01:34→20:18)
[2018-02-14] MEDS: ACETYLCYSTEINE 20% 4 ML VIAL NEB ×4 (01:34→20:18)
[2018-02-14] MEDS: ACCU-CHEK XX ×4 (05:54→18:12)
[2018-02-14 08:22] LABS: ANION GAP 14 (8-16); BLOOD UREA NITROGEN 25 mg/dl (7-20); CALCIUM 7.5 mg/dl (8.4-10.2); CARBON DIOXIDE 26 mmol/L (21-31); CHLORIDE 106 mmol/L (97-110); CREATININE 1.92 mg/dl (0.61-1.24); GLUCOSE 83 mg/dl (70-220); MAGNESIUM 2.1 mg/dl (1.7-2.5); PHOSPHORUS 4.4 mg/dl (2.5-4.9); POTASSIUM 3.9 mmol/L (3.5-5.1); SODIUM 142 mmol/L (135-144)
[2018-02-14] MEDS: BALSAM PERU/CASTOR OIL 60 GM TUBE TOP ×2 (09:29→20:57)
[2018-02-14] MEDS: AMIODARONE 200 MG TAB NGT ×2 (09:38→20:50)
[2018-02-14] MEDS: HEPARIN 5,000 UNIT/0.5 ML VIAL SC ×2 (09:55→20:57)
[2018-02-14] MEDS: ACETAMINOPHEN 325 MG TAB PO ×2 (18:19→20:50)
[2018-02-15] MEDS: ACCU-CHEK XX ×6 (00:08→21:00)
[2018-02-15] MEDS ORDERED: DEXTROSE 50% 50 ML SYRINGE IV (00:30)
[2018-02-15] MEDS ORDERED: GLUCOSE GEL 15 GRAM TUBE BUCCAL (00:30)
[2018-02-15] MEDS ORDERED: GLUCOSE GEL 15 GRAM TUBE PO ×2 (00:30)
[2018-02-15] MEDS ORDERED: GLUCAGON 1 MG INJ IM (00:30)
[2018-02-15] MEDS: DEXTROSE 50% 50 ML SYRINGE IV (00:44)
[2018-02-15] MEDS: ACETYLCYSTEINE 20% 4 ML VIAL NEB ×4 (01:49→20:01)
[2018-02-15] MEDS: ALBUTEROL/IPRATROPIUM (NEB) 3 ML AMP HHN ×4 (01:49→20:01)
[2018-02-15] MEDS: BALSAM PERU/CASTOR OIL 60 GM TUBE TOP ×2 (08:13→21:26)
[2018-02-15] MEDS: HEPARIN 5,000 UNIT/0.5 ML VIAL SC ×2 (08:19→21:25)
[2018-02-15] MEDS: DEXTROSE 5% 1,000 ML IV (08:57)
[2018-02-15] MEDS: AMIODARONE 200 MG TAB NGT ×2 (09:05→21:00)
[2018-02-16] MEDS: ACCU-CHEK XX ×6 (00:26→21:00)
[2018-02-16] MEDS: ACETYLCYSTEINE 20% 4 ML VIAL NEB ×4 (01:58→20:00)
[2018-02-16] MEDS: DEXTROSE 5% 1,000 ML IV (04:32)
[2018-02-16 05:54] LABS: ADD MAN DIFF? NO
[2018-02-16 06:10] LABS: WHITE BLOOD COUNT 11.6 10^3/ul (4.8-10.8)
[2018-02-16 06:10] LABS: BASOPHIL # 0.1 10^3/ul (0.0-0.1); BASOPHILS % 0.6 % (0.0-2.0); EOSINOPHILS # 0.2 10^3/ul (0.0-0.5); EOSINOPHILS % 1.4 % (0.0-7.0); HEMATOCRIT 26.9 % (42.0-52.0); HEMOGLOBIN 8.4 g/dl (14.0-18.0); LYMPHOCYTES # 3.1 10^3/ul (0.8-2.9); LYMPHOCYTES % 26.8 % (15.0-51.0); MEAN CORPUSCULAR HEMOGLOBIN 27.8 pg (29.0-33.0); MEAN CORPUSCULAR HGB CONC 31.2 g/dl (32.0-37.0); MEAN CORPUSCULAR VOLUME 89.1 fl (82.0-101.0); MEAN PLATELET VOLUME 10.2 fl (7.4-10.4); MONOCYTE # 1.4 10^3/ul (0.3-0.9); MONOCYTES % 11.9 % (0.0-11.0); NEUTROPHIL # 6.4 10^3/ul (1.6-7.5); NEUTROPHILS % 54.8 % (39.0-77.0); PLATELET COUNT 310 10^3/UL (140-415); RED BLOOD COUNT 3.02 10^6/ul (4.70-6.10); RED CELL DISTRIBUTION WIDTH 15.2 % (11.5-14.5)
[2018-02-16 06:36] LABS: ANION GAP 11 (8-16); BLOOD UREA NITROGEN 17 mg/dl (7-20); CALCIUM 7.4 mg/dl (8.4-10.2); CARBON DIOXIDE 27 mmol/L (21-31); CHLORIDE 107 mmol/L (97-110); GLUCOSE 79 mg/dl (70-220); MAGNESIUM 1.8 mg/dl (1.7-2.5); PHOSPHORUS 3.4 mg/dl (2.5-4.9); POTASSIUM 3.4 mmol/L (3.5-5.1); SODIUM 142 mmol/L (135-144)
[2018-02-16] MEDS: ALBUTEROL/IPRATROPIUM (NEB) 3 ML AMP HHN ×3 (07:35→20:00)
[2018-02-16] MEDS: AMIODARONE 200 MG TAB NGT ×2 (09:00→21:15)
[2018-02-16] MEDS: POTASSIUM CHLORIDE 100 ML IVPB ×2 (09:39→11:54)
[2018-02-16] MEDS: HEPARIN 5,000 UNIT/0.5 ML VIAL SC ×2 (09:40→21:12)
[2018-02-16] MEDS: NYSTATIN 30 GM POWDER BTL TOP ×2 (09:42→21:39)
[2018-02-16] MEDS: BALSAM PERU/CASTOR OIL 60 GM TUBE TOP ×2 (09:42→21:17)
[2018-02-17] MEDS: ACCU-CHEK XX ×5 (00:59→17:01)
[2018-02-17] MEDS: ACETYLCYSTEINE 20% 4 ML VIAL NEB ×3 (02:00→14:02)
[2018-02-17] MEDS: DEXTROSE 5% 1,000 ML IV (05:13)
[2018-02-17 06:18] LABS: ANION GAP 10 (8-16); BLOOD UREA NITROGEN 13 mg/dl (7-20); CALCIUM 7.5 mg/dl (8.4-10.2); CARBON DIOXIDE 26 mmol/L (21-31); CHLORIDE 108 mmol/L (97-110); CREATININE 1.83 mg/dl (0.61-1.24); GLUCOSE 158 mg/dl (70-220); MAGNESIUM 1.7 mg/dl (1.7-2.5); PHOSPHORUS 3.3 mg/dl (2.5-4.9); SODIUM 140 mmol/L (135-144)
[2018-02-17] MEDS: ALBUTEROL/IPRATROPIUM (NEB) 3 ML AMP HHN ×2 (07:25→14:02)
[2018-02-17] MEDS: AMIODARONE 200 MG TAB NGT (08:43)
[2018-02-17] MEDS: HEPARIN 5,000 UNIT/0.5 ML VIAL SC (08:44)
[2018-02-17] MEDS: BALSAM PERU/CASTOR OIL 60 GM TUBE TOP (08:52)
[2018-02-17] MEDS: NYSTATIN 30 GM POWDER BTL TOP (08:52)
[2018-02-17 09:03] LABS: ADD MAN DIFF? NO
[2018-02-17 09:06] LABS: WHITE BLOOD COUNT 11.8 10^3/ul (4.8-10.8)
[2018-02-17 09:06] LABS: ABNORMAL IP MESSAGE 1; BASOPHIL # 0.1 10^3/ul (0.0-0.1); BASOPHILS % 0.6 % (0.0-2.0); EOSINOPHILS # 0.3 10^3/ul (0.0-0.5); EOSINOPHILS % 2.3 % (0.0-7.0); HEMATOCRIT 28.1 % (42.0-52.0); HEMOGLOBIN 8.7 g/dl (14.0-18.0); LYMPHOCYTES # 3.1 10^3/ul (0.8-2.9); LYMPHOCYTES % 26.6 % (15.0-51.0); MEAN CORPUSCULAR HEMOGLOBIN 28.3 pg (29.0-33.0); MEAN CORPUSCULAR VOLUME 91.5 fl (82.0-101.0); MEAN PLATELET VOLUME 10.3 fl (7.4-10.4); MONOCYTE # 1.1 10^3/ul (0.3-0.9); MONOCYTES % 9.4 % (0.0-11.0); NEUTROPHIL # 6.5 10^3/ul (1.6-7.5); NEUTROPHILS % 55.2 % (39.0-77.0); PLATELET COUNT 322 10^3/UL (140-415); POSITIVE DIFF @See below; RED BLOOD COUNT 3.07 10^6/ul (4.70-6.10); RED CELL DISTRIBUTION WIDTH 15.3 % (11.5-14.5)
[2018-02-17] MEDS: MAGNESIUM SULFATE 2 GM/50 ML 50 ML IVPB (14:13)
== END 2018-02-17 17:38 | disposition home health service (06) | DRG 871 ==
LOC: MS4 02-01 00:33 → E/R 21:11 → ICU 02-01 12:13 → PP2 02-15 22:27
PROC: 05HY33Z Insertion of Infusion Device into Upper Vein, Percutaneous Approach (ICD-10-PCS; principal; 2018-02-01)
PROC: 0D9670Z Drainage of Stomach with Drainage Device, Via Natural or Artificial Opening (ICD-10-PCS; 2018-02-01)
DX: A41.9 Sepsis, unspecified organism (principal); G93.40 Encephalopathy, unspecified; N17.0 Acute kidney failure with tubular necrosis; I21.A1 Myocardial infarction type 2; J96.00 Acute respiratory failure, unspecified whether with hypoxia or hypercapnia; J18.9 Pneumonia, unspecified organism; I50.31 Acute diastolic (congestive) heart failure; I13.0 Hypertensive heart and chronic kidney disease with heart failure and stage 1 through stage 4 chronic kidney disease, or unspecified chronic kidney disease; N17.9 Acute kidney failure, unspecified; K56.7 Ileus, unspecified; J98.11 Atelectasis; K56.609 Unspecified intestinal obstruction, unspecified as to partial versus complete obstruction; F03.90 Unspecified dementia, unspecified severity, without behavioral disturbance, psychotic disturbance, mood disturbance, and anxiety; E87.5 Hyperkalemia; R65.20 Severe sepsis without septic shock; R62.7 Adult failure to thrive; N19 Unspecified kidney failure; I25.10 Atherosclerotic heart disease of native coronary artery without angina pectoris; J44.9 Chronic obstructive pulmonary disease, unspecified; D64.9 Anemia, unspecified; N18.9 Chronic kidney disease, unspecified; R19.7 Diarrhea, unspecified; I48.0 Paroxysmal atrial fibrillation; R13.10 Dysphagia, unspecified; Z79.82 Long term (current) use of aspirin; Z95.1 Presence of aortocoronary bypass graft; Z85.038 Personal history of other malignant neoplasm of large intestine; K66.0 Peritoneal adhesions (postprocedural) (postinfection); Z66 Do not resuscitate
CPT/HCPCS: 36415; 36569; 36600; 71045; 74018; 74176; 76775; 76937; 80048; 80051; 80053; 80202; 81001; 81003; 82043; 82140; 82150; 82533; 82550; 82553; 82565; 82803; 82962; 83036; 83605; 83690; 83735; 83930; 83935; 84100; 84155; 84300; 84443; 84484; 84520; 85014; 85018; 85025; 85610; 85730; 87040; 87075; 87081; 87086; 92526; 92610; 93005; 93306; 94640; 94664; 94668; 96372; 96374; 96375; 97110; 97162; 97530; 99291-25